=== PATIENT | female | born 1940 | race African-American/Black ===

== ENCOUNTER 2017-10-19 15:28 | Emergency (ER) | payer MEDICARE, BC ==
[~2017-10-19] VITALS: Ht 162.6 cm; Wt 80.0 kg
[2017-10-19 18:06] LABS: HEMATOCRIT. 33.1 % (36.0-48.0); HEMOGLOBIN. 10.6 g/dL (12.0-16.0); MEAN CORPUSCULAR HEMOGLOBIN 26.9 pg (28.0-32.0); MEAN CORPUSCULAR VOLUME 84.2 fL (81.0-99.0); MEAN PLATELET VOLUME 9.3 fl (7.4-10.4); PLATELET 184 x1000/uL (130-400); RED BLOOD CELL COUNT 3.94 mill/uL (4.2-5.4); RED CELL DISTRIBUTION WIDTH 22.1 % (11.6-14.6)
[2017-10-19 18:09] LABS: CHLORIDE 93 mEq/L (98-107); INR 1.2
[2017-10-19 18:17] LABS: CARBON DIOXIDE 22 mEq/L (21-32)
[2017-10-19 18:20] LABS: TROPONIN I < 0.02 ng/mL (0.00-0.04)
[2017-10-19 19:02] LABS: PLATELET ESTIMATE NORMAL
[2017-10-19 20:19] VITALS: BP 136/60
== END 2017-10-19 20:33 | disposition home or self-care (01) ==
LOC: ER 15:31
DX: R53.1 Weakness (principal); R26.2 Difficulty in walking, not elsewhere classified; E11.9 Type 2 diabetes mellitus without complications; I10 Essential (primary) hypertension; Z86.73 Personal history of transient ischemic attack (TIA), and cerebral infarction without residual deficits
CPT/HCPCS: 36415; 71010; 80053; 83880; 84484; 85025; 85610; 93005; 99285